=== PATIENT | male | born 1970 | race Caucasian/White ===

== ENCOUNTER 2018-02-18 11:51 | Inpatient (IN) | payer OTHER, BC ==
[~2018-02-18] VITALS: Ht 185.4 cm; Wt 134.9 kg
[~2018-02-18 11:51] MED LIST: ACET-749 PO; ALLO300T2 PO; ARMO150T4 PO; ATV1 PO; CHOL1TAB42 PO; CLC6 PO; CYAN10005 PO; CYCL10TA6 PO; DIME1CAP2 PO; GABA-1220 PO; METH1TAB81 PO; ORPH100T PO; RXC5 PO
[2018-02-18] MEDS ORDERED: KETOROLAC TROMETHAMINE 60 MG/2 ML VIAL IM STA (12:11)
--- NOTE | 2018-02-18 12:13 | EMERGENCY ROOM VISIT NOTE ---
History Report prepared by Francisco J: Eliezer Pool Under the Supervision of: Dr. Christopher Kaur M.D. First contact with patient: 12:07 Chief Complaint: BACK PAIN Stated Complaint: BACK PAIN History of Present Illness The patient is a 47 year old male who presents to the Emergency Room with complaints of worsening back pain over the past week. Per the nursing note, the patient has been having pain on and off for the past month, but has worsened over the past week. Per the patient's , the patient had back surgery a year and a half ago to S1. He notes that he had 2 pins and 2 rods inserted. He states that his back is "killing him", and he has pain and numbness and tingling down the side of his right leg and into his foot. The patient notes that he has been taking Ibuprofen for the pain. He says that he tried to get in to see his PCP for this, but they have been full. He denies any urinary symptoms. Source of History: patient, spouse/significant other, nursing staff Onset: Over past week Position: back Symptom Intensity: "killing" him Quality: other (pain) Timing: worsening Associated Symptoms: + numbness (and tingling down right leg and foot), No urinary symptoms Review of Systems See HPI for pertinent positives and negatives. A total of ten systems were reviewed and were otherwise negative. Past Medical & Surgical Medical Problems: (1) Kidney stones (2) Lumbar stenosis with neurogenic claudication (3) Sciatica associated with disorder of lumbar spine (4) Spondylolisthesis at L5-S1 level Surgical Problems: (1) History of appendectomy (2) History of tonsillectomy Family History Heart disease Hypertension Social History Smoking Status: Never Smoker Alcohol Use: none Drug Use: none Marital Status: Housing Status: lives with family Occupation Status: employed Current/Historical Medications Scheduled Allopurinol (Zyloprim), 300 MG PO QAM Amlodipine (Norvasc), 10 MG PO QAM Cholecalciferol (Vitamin D), 5,000 INTER.UNIT PO QAM Cyanocobalamin (Vitamin B-12), 1,000 MCG PO QAM Dimethyl Fumarate (Tecfidera), 240 MG PO BID Fish Oil ([place]-3), 2,000 MG PO QAM Gabapentin (Neurontin), 400 MG PO DAILY Metoprolol Succ (Toprol Xl) (Toprol-Xl), 50 MG PO QAM Scheduled PRN Hydroxyzine HCl (Hydroxyzine HCl), 25 MG PO Q8 PRN for Itching Allergies Coded Allergies: Glatiramer (Unverified Allergy, Unknown, [place], 06/05/16) Mannitol (Unverified Allergy, Unknown, [place], 06/05/16) Meperidine (Verified Allergy, Unknown, hypotension, 06/05/16) Physical Exam Vital Signs Date Time Temp Pulse Resp B/P (MAP) Pulse Ox O2 Delivery O2 Flow Rate FiO2 02/18/18 16:40 70 20 178/88 95 Room Air 02/18/18 15:17 68 18 172/108 95 Room Air 02/18/18 13:55 81 18 136/95 96 Room Air 02/18/18 12:53 88 18 169/116 100 Room Air 02/18/18 11:52 36.5 93 20 163/116 97 Room Air Physical Exam Physical Exam GENERAL: He is oriented to person, place, and time. He appears well-developed and well-nourished. He does not appear distressed. ____ HENT: Exam performed. Head: Normocephalic and atraumatic. Right Ear: External ear normal. No mastoid tenderness. Left Ear: External ear normal. No mastoid tenderness. Mouth/Throat: The oropharynx is clear and moist. No trismus in the jaw. No dental abscesses or uvula swelling. No oropharyngeal exudate or tonsillar abscesses. ____ EYES: Conjunctivae and EOM are normal. Pupils are equal, round, and reactive to light. Right eye exhibits no discharge. Left eye exhibits no discharge. No scleral icterus. ____ NECK: Normal range of motion. Neck supple. No JVD present. No spinous process tenderness present. No carotid bruit present. No rigidity. No tracheal deviation and normal range of motion present. No Brudzinski's sign and no Kernig 's sign noted. ____ CV: Normal rate, regular rhythm, normal heart sounds and intact distal pulses. There is no peripheral edema. Palpable radial pulses bue. ____ PULM/CHEST: Effort normal and breath sounds normal. No respiratory distress. No stridor. He has no wheezes. He has no rales. Chest Wall: He exhibits no tenderness. ____ ABD: The abdomen is soft. Bowel sounds are normal. He has no distension. No mass is present. There is no tenderness. There is no rebound, no guarding, no Momin's sign and no tenderness at McBurney's point. Rovsig negative MUSC/SKEL: Pain on palpation over the lumbar and sacral area. LYMPH: No cervical adenopathy. ____ NEURO: He is alert and oriented to person, place, and time. He has normal strength. No saddle anesthesia or paresthesias. No cranial nerve deficit or sensory deficit. Coordination and gait normal. GCS eye subscore is 4. GCS verbal subscore is 5. GCS motor subscore is 6. Cerebellar tests wnl. ____ SKIN: Skin is warm and dry. He is not diaphoretic. ____ PSYCH: He has a normal mood and affect. He behavior is normal. Judgment and thought content normal. ____ Medical Decision & Procedures ER Provider Diagnostic Interpretation: X-ray: Per my interpretation, radiologist review. L-SPINE MIN 4 VIEWS ROUTINE CLINICAL HISTORY: Back pain. History of spine surgery. COMPARISON: Lumbar spine radiographs March 26, 2016 and lumbar spine MRI April 30, 2016. FINDINGS: The patient is status post L5-S1 discectomy with posterior decompression and bilateral pedicle screw fusion from L5 through S1. Of note, the proximal aspect of the bilateral S1 pedicle screws are fractured. No acute lumbar spine fracture or subluxation is present. There is mild multilevel facet arthrosis. Mild multilevel endplate osteophytosis is noted. IMPRESSION: 1. Fracture of the bilateral S1 pedicle screws 2. No acute lumbar spine fracture or subluxation. Electronically signed by: Naseem Mcclain M.D. 02/18/2018 1:01 PM Dictated Date/Time: 02/18/2018 12:57 PM SACRUM COCCYX MIN 2 VIEWS CLINICAL HISTORY: back pain COMPARISON STUDY: Lumbar spine radiograph March 26, 2016. FINDINGS: The patient is status post L5-S1 discectomy with L5-S1 bilateral pedicle screw fusion. The proximal aspects of both S1 screws or fracture. Sacroiliac joints are intact. There is no acute fracture within the sacrum or coccyx by radiography. IMPRESSION: 1. No acute fracture within the sacrum or coccyx by radiography. 2. Status post L5-S1 discectomy and bilateral pedicle screw fusion. Fracture of the bilateral S1 pedicle screws. Electronically signed by: Naseem Mcclain M.D. 02/18/2018 1:03 PM Dictated Date/Time: 02/18/2018 1:01 PM Medications Administered Medications (Trade) Dose Ordered Sig/Maite Route Start Time Stop Time Status Last Admin Dose Admin Ketorolac Tromethamine (Toradol Inj) 15 mg NOW STAT IM 02/18/18 12:11 02/18/18 12:13 DC 02/18/18 12:21 15 MG Diazepam (Valium Tab) 5 mg NOW STAT PO 02/18/18 13:13 02/18/18 13:15 DC 02/18/18 13:26 5 MG Hydromorphone HCl (Dilaudid Inj) 1 mg STK-MED ONCE .ROUTE 02/18/18 13:23 02/18/18 13:24 DC 02/18/18 13:26 1 MG Hydromorphone HCl (Dilaudid Inj) 0.5 mg NOW STAT IM 02/18/18 15:02 02/18/18 15:03 DC 02/18/18 15:15 0.5 MG Acetaminophen (Tylenol Tab) 650 mg Q6H PRN PO 02/18/18 16:15 03/20/18 16:14 02/18/18 16:35 650 MG Lorazepam 1 mg/ Syringe 1 ml @ 1 mls/min Q6H PRN IV 02/18/18 16:15 03/20/18 16:14 02/18/18 16:36 1 MLS/MIN Cyclobenzaprine HCl (Flexeril Tab) 10 mg Q8H PRN PO 02/18/18 16:15 03/20/18 16:14 02/18/18 16:35 10 MG ED Course 1208: The patient was evaluated in room B4B. A complete history and physical exam was performed. 1211: Toradol Inj 15 mg IM. 1313: Valium Tab 5 mg PO, Dilaudid Inj 1 mg IM. 1427: Multiple attempts have been made to page Dr. Valdes. No response at this time. 1502: Dilaudid Inj 0.5 mg IM. 1528: I discussed the patient with Dr. Valdes - [facility] [place] he will come down to evaluate the patient. 1539: Dr. Valdes is in the room evaluating the patient. 1609: Dr. Valdes states he will admit the patient to his service. Medical Decision 1208: The patient was evaluated in room B4B. A complete history and physical exam was performed. 1211: Toradol Inj 15 mg IM. 1313: Valium Tab 5 mg PO, Dilaudid Inj 1 mg IM. 1427: Multiple attempts have been made to page Dr. Valdes. No response at this time. 1502: Dilaudid Inj 0.5 mg IM. 1528: I discussed the patient with Dr. Keisha DONALD - he will come down to evaluate the patient. 1539: Dr. Valdes is in the room evaluating the patient. 1609: Dr. Valdes states he will admit the patient to his service. Medication Reconcilliation Current Medication List: was personally reviewed by me Blood Pressure Screening Patient's blood pressure: Elevated blood pressure Blood pressure disposition: Elevated BP felt to be situational Consults Time Called: 1525 Consulting Physician: Dr. Keisha DONALD Returned Call: 1528 I discussed the patient with Dr. Keisha DONALD - he will come down to evaluate the patient. Additional Consults: Time Called: 1600 Consulted Physician: Dr. Keisha DONALD Returned Call: 1609 Additional Comments: I discussed the patient with Dr. Keisha DONALD - marilyn will evaluate the patient for further treatment. Impression Primary Impression: Intractable back pain Scribe Attestation The scribe's documentation has been prepared under my direction and personally reviewed by me in its entirety. I confirm that the note above accurately reflects all work, treatment, procedures, and medical decision making performed by me. The chart was completed utilizing [employer] voice recognition software. Grammatical errors, random word insertions, pronoun errors, and incomplete sentences are an occasional consequence of this system due to software limitations, ambient noise, and hardware issues. Any formal questions or concerns about the content, text, or information contained within the body of this dictation should be directly addressed to the physician for clarification. Departure Information Dispostion Being Evaluated By Enoc Hyde M.D. (PCP) Patient Instructions [facility]
--- NOTE | 2018-02-18 13:03 | DIAGNOSTIC IMAGING REPORT ---
L-SPINE MIN 4 VIEWS ROUTINE CLINICAL HISTORY: Back pain. History of spine surgery. COMPARISON: Lumbar spine radiographs March 26, 2016 and lumbar spine MRI April 30, 2016. FINDINGS: The patient is status post L5-S1 discectomy with posterior decompression and bilateral pedicle screw fusion from L5 through S1. Of note, the proximal aspect of the bilateral S1 pedicle screws are fractured. No acute lumbar spine fracture or subluxation is present. There is mild multilevel facet arthrosis. Mild multilevel endplate osteophytosis is noted. IMPRESSION: 1. Fracture of the bilateral S1 pedicle screws 2. No acute lumbar spine fracture or subluxation. Electronically signed by: Naseem Mcclain M.D. 02/18/2018 1:01 PM Dictated Date/Time: 02/18/2018 12:57 PM
--- NOTE | 2018-02-18 13:04 | DIAGNOSTIC IMAGING REPORT ---
SACRUM COCCYX MIN 2 VIEWS CLINICAL HISTORY: back pain COMPARISON STUDY: Lumbar spine radiograph March 26, 2016. FINDINGS: The patient is status post L5-S1 discectomy with L5-S1 bilateral pedicle screw fusion. The proximal aspects of both S1 screws or fracture. Sacroiliac joints are intact. There is no acute fracture within the sacrum or coccyx by radiography. IMPRESSION: 1. No acute fracture within the sacrum or coccyx by radiography. 2. Status post L5-S1 discectomy and bilateral pedicle screw fusion. Fracture of the bilateral S1 pedicle screws. Electronically signed by: Naseem Mcclain M.D. 02/18/2018 1:03 PM Dictated Date/Time: 02/18/2018 1:01 PM
[2018-02-18] MEDS ORDERED: DIAZEPAM 5MG TAB PO STA (13:13)
[2018-02-18] MEDS ORDERED: HYDROmorphone INJ 0.5 MG/0.5 ML SYR IM STA ×2 (13:13→15:02)
[2018-02-18] MEDS ORDERED: HYDROmorphone INJ 1 MG/ML SYR ONE (13:23)
[2018-02-18] MEDS: SODIUM CHLORIDE 0.9% 1000ML 1,000 ML IV SCH (16:11)
[2018-02-18] MEDS ORDERED: LORAZEPAM INJ 1 MG in SYRINGE 0.5 ML IV PRN (16:15)
[2018-02-18] MEDS ORDERED: ONDANSETRON INJ 2 MG/ML 2 ML VIAL IV PRN (16:15)
[2018-02-18] MEDS ORDERED: ACETAMINOPHEN 325 MG TAB PO PRN (16:15)
[2018-02-18] MEDS ORDERED: NALOXONE HCL 0.4 MG/1 ML VIAL/CARP IV PRN (16:15)
[2018-02-18] MEDS ORDERED: LORAZEPAM 1 MG TAB PO PRN (16:15)
--- NOTE | 2018-02-18 16:18 | History and Physical ---
History & Physical Date Feb 18, 2018. Chief Complaint Back and right leg pain History of Present Illness The patient is a 47 year old male with complaints of severe back and right leg pain. Patient states his symptoms became quite severe over the past week. He describes the pain at the lumbosacral junction extending in the right buttock posterior thigh extending to the anterior right tibia. He gets a little bit of pain in the left buttock but not as severe. He denies any specific trauma fall or event. He states he has been unable to care for himself and ambulate reasonably secondary to the pain. He denies any loss of bowel or bladder control. He does take oral pain medications at home without been unsuccessful in controlling his symptoms. Again he is status post lumbar decompression fusion L5-S1 almost 2 years ago. Past Medical/Surgical History Medical Problems: (1) Kidney stones (2) Lumbar stenosis with neurogenic claudication (3) Sciatica associated with disorder of lumbar spine (4) Spondylolisthesis at L5-S1 level Surgical Problems: (1) History of appendectomy (2) History of tonsillectomy Additional History Hypertension: Yes Allergies Coded Allergies: Glatiramer (Unverified Allergy, Unknown, [place], 06/05/16) Mannitol (Unverified Allergy, Unknown, [place], 06/05/16) Meperidine (Verified Allergy, Unknown, hypotension, 06/05/16) Home Medications Scheduled Allopurinol (Zyloprim), 300 MG PO QAM Cholecalciferol (Vitamin D), 5,000 UNITS PO QAM Cyanocobalamin (Vitamin B-12), 1,000 MCG PO QAM Dimethyl Fumarate (Tecfidera), 240 MG PO BID Gabapentin (Neurontin), 400 MG PO DAILY Metoprolol Succ (Toprol Xl) (Toprol-Xl), 50 MG PO DAILY Scheduled PRN Acetaminophen/Codeine (Tylenol W/Codeine #3), 1 TAB PO BID PRN for Pain Armodafinil (Nuvigil), 1 TAB PO DAILY PRN for unknown Colchicine (Colcrys), 0.6 MG PO DIRECTED PRN for inflammation Cyclobenzaprine Hcl (Flexeril), 10 MG PO BID PRN for SPASM Lorazepam (Lorazepam), 1 MG PO Q6H PRN for ANXIETY/SPASMS Orphenadrine Citrate (Norflex), 1 TAB PO BID PRN for unknown Oxycodone HCl (Oxycodone HCl), 5-10 MG PO Q4H PRN for Pain Miscellaneous Medications Methylprednisolone (Medrol), 4 MG PO Physical Examination Addiitonal Comments: On exam patient exhibits marked discomfort. He has 4/5 right quadriceps compared to a 5/5 on the left. Plantar flexion dorsiflexion appears to be symmetric bilaterally. Sensory is symmetric and intact. He has tension signs with straight leg raising on the right compared to the left. He has no abnormal skin markings inspection of the lumbar spine. No significant pain to palpation of the lumbar musculature. Diagnosis Low back pain with right sciatica. Plan at this time in light of his presentation and severe discomfort I would like to obtain an MRI of the lumbar spine. I am concerned that he is demonstrating evidence of significant retrolisthesis of L4 on L5 on his plain films performed today. We will get the MRI and make further recommendations after its review. Plan of Treatment Obtain MRI and make further recommendations.
[2018-02-18] MEDS ORDERED: LORAZEPAM 2 MG/ML 1 ML VIAL ONE (16:32)
[2018-02-18] MEDS: CYCLOBENZAPRINE HCL 10 MG TAB PO PRN (16:35)
[2018-02-18] MEDS ORDERED: ATR25 PO (16:48)
[2018-02-18] MEDS ORDERED: AMLO-114 PO (16:48)
[2018-02-18] MEDS ORDERED: OMEG10007 PO (16:48)
[2018-02-18] MEDS ORDERED: METO50TA8 PO (17:43)
[2018-02-18] MEDS ORDERED: IV FLUIDS COMPLETED PRN (17:45)
[2018-02-18 18:15] VITALS: BP 147/100; PULSE 90; TEMP 36.7; O2SAT 93; Ht 185.4 cm; Wt 134.9 kg
--- NOTE | 2018-02-18 18:15 | DIAGNOSTIC IMAGING REPORT ---
LUMBAR SPINE COMBINATION CLINICAL HISTORY: 47 years-old Male presenting with back and right leg pain, recent fall, diagnosed with multiple sclerosis in 2014, history of L5-S1 surgery in 2016. TECHNIQUE: Multisequence, multiplanar MR imaging of the lumbar spine was performed before and after the administration of intravenous contrast. IV contrast: 12.4 mL of Gadavist. COMPARISON: None. FINDINGS: Localizer images: Unremarkable. Normal lumbar lordosis. Postsurgical changes of transpedicular screw and humberto fixation of L5-S1 with L5 left laminectomy defect. Adequate posterior decompression. Interbody spacer noted at L5-S1. Endplates at L5-S1 demonstrate fatty changes (Modic type II). The nonoperative levels demonstrate normal vertebral body height, alignment, and bone marrow signal intensity. Mild disc desiccation without height loss at L2-3 and L3-4. Multilevel degenerative changes further detailed below: L1-2: No significant neural foraminal or spinal canal stenosis. L2-3: Minimal eccentric disc bulge results in mild bilateral neural foraminal narrowing, greater on the left. No significant spinal canal narrowing. L3-4: Minimal eccentric disc bulge results in mild bilateral neural foraminal narrowing, greater on the left. L4-5: Mild disc bulge with facet arthropathy and mild ligamentum flavum thickening does not result in significant spinal canal narrowing. Moderate right and severe left neural foraminal narrowing. Abutment of the exiting right and mass effect on the exiting left L4 nerve roots. No mass effect on the transiting L5 nerve roots. L5-S1: No significant neural foraminal or spinal canal narrowing. Spinal cord is in good position at the superior endplate of L1. Cauda equina normal in morphology. No fluid collection in the operative bed. Expected enhancement of the surgical granulation tissue. No abnormal enhancement of the spinal cord or cauda equina. Mild nonspecific subcutaneous edema in the lumbar region. Mild nonspecific edema in the superficial sacral musculature. IMPRESSION: 1. Postsurgical changes of L5-S1 posterior fusion with interbody spacer and L5 laminectomy. 2. Mild multilevel degenerative changes most significant at the adjacent level of L4-5, where there is moderate right and severe left neural foraminal narrowing impacting the bilateral exiting L4 nerve roots, left greater than right. Electronically signed by: Daniel Andrade M.D. 02/18/2018 6:14 PM Dictated Date/Time: 02/18/2018 6:07 PM
[2018-02-18] MEDS: HYDROmorphone HCL 0.5MG/ML 50 ML CASSETTE IV PRN ×2 (18:51→23:32)
[2018-02-18 19:20] VITALS: BP 142/129; PULSE 99; TEMP 36.7; O2SAT 93
[2018-02-18] MEDS: LACTATED RINGER'S 1000ML 1,000 ML IV SCH (19:26)
[2018-02-18 20:06] VITALS: BP 129/84; PULSE 99; O2SAT 93
[2018-02-18 20:57] VITALS: BP 144/98; PULSE 84; TEMP 36.7; O2SAT 90
[2018-02-18] MEDS: DOCUSATE SODIUM 100 MG CAP PO SCH (21:00)
[2018-02-18 22:02] VITALS: BP 159/98; PULSE 85; O2SAT 93
[2018-02-18 23:06] VITALS: BP 130/80; PULSE 90; TEMP 36.6; O2SAT 92
[2018-02-19 03:17] VITALS: BP 137/93; PULSE 79; TEMP 36.7; O2SAT 94
[2018-02-19] MEDS: HYDROmorphone HCL 0.5MG/ML 50 ML CASSETTE IV PRN ×2 (06:57→14:51)
[2018-02-19] MEDS: LACTATED RINGER'S 1000ML 1,000 ML IV SCH ×2 (07:41→20:43)
[2018-02-19 07:42] VITALS: BP 142/93; PULSE 74; TEMP 36.6; O2SAT 95
[2018-02-19] MEDS: METOPROLOL SUCC 50MG EXT REL TAB PO SCH (08:33)
[2018-02-19] MEDS: GABAPENTIN 400 MG CAP PO SCH (08:33)
[2018-02-19] MEDS: ALLOPURINOL 300 MG TAB PO SCH (08:33)
[2018-02-19] MEDS: DOCUSATE SODIUM 100 MG CAP PO SCH ×2 (08:33→20:41)
--- NOTE | 2018-02-19 10:45 | Progress Note ---
Progress Note Date of Service Feb 19, 2018. Progress Note Patient continues to complain of significant back bilateral leg pain right greater than left. Clearly exacerbated with activity. The IV Dilaudid is providing some relief. Vital signs are stable. Physical exam essentially unchanged. I long discussion with this patient reviewing his MRI findings. The MRI demonstrates evidence of marked facet hypertrophy consistent with instability. There is significant increased fluid within the facet joints indicating instability. This is creating significant lateral recess disease and foraminal stenosis. Undoubtedly this is contributing to his pain patterns. We lengthy discussion regarding treatment options. In light of his symptoms being severe and marked decline in status over the past several weeks with a long-standing history of worsening back pain over the past several months he would like to pursue surgical intervention. Surgery would require lumbar decompression and fusion L4-5 with removal of instrumentation L5-S1. Risks benefits pros cons and alternatives were outlined in detail. Risks include but not limited to from anesthesia blindness stroke paralysis nerve damage blood loss current transfusion infection requiring reoperation. Patient understands and agrees. Like to pursue surgery. We will try to have this arranged performed on Wednesday.
[2018-02-19] MEDS: SODIUM CHLORIDE 0.9% 1000ML 1,000 ML IV SCH (15:12)
[2018-02-19 15:15] VITALS: O2SAT 94
[2018-02-19 15:22] VITALS: BP 153/96; PULSE 84; TEMP 36.9; O2SAT 94
[2018-02-19] MEDS ORDERED: NURSING VERBAL MED ORDER ONE (15:30)
[2018-02-19] MEDS ORDERED: DiphenhydrAMINE HCL 50 MG/ML VIAL IV SCH (15:30)
[2018-02-19] MEDS: DIMETHYL FUMARATE 240 MG PO SCH (20:42)
[2018-02-19 23:55] VITALS: BP 149/96; PULSE 87; TEMP 36.6; O2SAT 93
[2018-02-20] VITALS (7 sets, daily range): BP systolic 130–154; BP diastolic 90–112; PULSE 73–84; TEMP 36.6–36.9; O2SAT 91–94
[2018-02-20] MEDS: HYDROmorphone HCL 0.5MG/ML 50 ML CASSETTE IV PRN ×4 (06:53→23:06)
--- NOTE | 2018-02-20 08:37 | Progress Note ---
Progress Note Date of Service Feb 20, 2018. Progress Note Subjective: The patient is well-known to our practice who previously undergone lumbar decompression and fusion at L5-S1. Reported the emergency room on Wednesday with recurring symptoms. He has a combination of both pain in his back and his legs. Repeat MRI revealed adjacent level disease and we are planning to bring him back to surgery on Wednesday. Objective: The patient is comfortable with his Dilaudid REPAIR TECH. He is alert and oriented. His abdomen soft nontender his calves are supple nontender strength and sensation are grossly intact. Assessment: Patient presents with adjacent level disease and spinal stenosis. Plan: We will make him n.p.o. after midnight. We will continue his Dilaudid REPAIR TECH for pain control. I will bring him to the operating room tomorrow for removal of hardware at L5-S1 decompression fusion L4-5.
[2018-02-20] MEDS: DIMETHYL FUMARATE 240 MG PO SCH ×2 (09:29→20:49)
[2018-02-20] MEDS: GABAPENTIN 400 MG CAP PO SCH (09:29)
[2018-02-20] MEDS: ALLOPURINOL 300 MG TAB PO SCH (09:29)
[2018-02-20] MEDS: DOCUSATE SODIUM 100 MG CAP PO SCH ×2 (09:29→20:49)
[2018-02-20] MEDS: LACTATED RINGER'S 1000ML 1,000 ML IV SCH (09:30)
[2018-02-20] MEDS: METOPROLOL SUCC 50MG EXT REL TAB PO SCH (09:30)
[2018-02-20] MEDS: SODIUM CHLORIDE 0.9% 1000ML 1,000 ML IV SCH (16:11)
[2018-02-20] MEDS ORDERED: NURSING VERBAL MED ORDER ONE (20:15)
[2018-02-21] VITALS (9 sets, daily range): BP systolic 123–156; BP diastolic 81–106; PULSE 80–99; TEMP 36.5–37; O2SAT 91–96
[2018-02-21] MEDS: LACTATED RINGER'S 1000ML 1,000 ML IV SCH
[2018-02-21] MEDS: HYDROmorphone HCL 0.5MG/ML 50 ML CASSETTE IV PRN ×4 (07:02→23:00)
[2018-02-21] MEDS: GABAPENTIN 400 MG CAP PO SCH (08:33)
[2018-02-21] MEDS: DIMETHYL FUMARATE 240 MG PO SCH ×2 (08:33→20:58)
[2018-02-21] MEDS: ALLOPURINOL 300 MG TAB PO SCH (08:34)
[2018-02-21] MEDS: DOCUSATE SODIUM 100 MG CAP PO SCH ×2 (08:34→20:57)
[2018-02-21] MEDS: METOPROLOL SUCC 50MG EXT REL TAB PO SCH (08:34)
--- NOTE | 2018-02-21 14:09 | History & Physical Bridge Note ---
H&P Re-Evaluation Bridge Note: I have examined the patient, reviewed the History & Physical and in the interval since the performance of the History & Physical I have noted the following changes of clinical significance: No changes noted
[2018-02-21] MEDS ORDERED: NURSING VERBAL MED ORDER ONE (14:15)
[2018-02-21] MEDS ORDERED: CEFAZOLIN SOD 3000MG/22.5 ML IV PUSH IV ONE (14:22)
[2018-02-21] MEDS ORDERED: LIDOCAINE HCL 2% 2 ML VIAL (20MG/ML) ONE ×2 (14:31→15:18)
[2018-02-21] MEDS ORDERED: NEOSTIGMINE METHYLSULFATE 1 MG/ML 10ML VIAL ONE (14:31)
[2018-02-21] MEDS ORDERED: BUPIVACAINE/EPINEPHRINE 0.5% MPF 1:200,000 30 ML VIAL ONE (14:31)
[2018-02-21] MEDS ORDERED: GLYCOPYRROLATE INJ 0.2 MG/ML VIAL ONE ×2 (14:31→15:18)
[2018-02-21] MEDS ORDERED: BACITRACIN 50000 UNIT VIAL ONE (14:31)
[2018-02-21] MEDS ORDERED: MIDAZOLAM HCL 1 MG/ML 2ML VIAL ONE (14:31)
[2018-02-21] MEDS ORDERED: DEXAMETHASONE SOD INJ 4 MG/ML VIAL ONE (14:31)
[2018-02-21] MEDS ORDERED: FENTANYL CITRATE INJ 50 MCG/1 ML 2 ML VIAL ONE (14:31)
[2018-02-21] MEDS ORDERED: ONDANSETRON INJ 2 MG/ML 2 ML VIAL ONE ×2 (14:31→15:18)
[2018-02-21] MEDS ORDERED: PROPOFOL IV EMULSION 10 MG/ML 20 ML VIAL IV ONE (14:31)
[2018-02-21] MEDS ORDERED: HYDROmorphone INJ 2 MG/ML SYR/VIAL ONE (14:34)
[2018-02-21] MEDS ORDERED: EpHEDrine SULFATE INJ 50 MG/ML AMP ONE (15:15)
[2018-02-21] MEDS ORDERED: SODIUM CHLORIDE 0.9% INJ 10 ML VIAL ONE (15:15)
[2018-02-21] MEDS ORDERED: PHENYLEPHRINE 100MCG/ML 5ML SYR ONE (15:15)
[2018-02-21] MEDS ORDERED: LARYING-O-JET KIT (LTA) ONE (15:15)
[2018-02-21] MEDS ORDERED: PHENYLEPHRINE HCL INJ 10 MG/ML VIAL ONE (16:05)
[2018-02-21] MEDS ORDERED: ROCURONIUM BROMIDE 10 MG/ML 5 ML VIAL IV ONE (16:26)
[2018-02-21] MEDS ORDERED: FLOSEAL HEMOSTATIC MATRIX 10ML TOP ONE (16:32)
--- NOTE | 2018-02-21 16:35 | [facility] Operative Report ---
Operative Report Operative Date Feb 21, 2018. Pre-Operative Diagnosis Adjacent level disease and spinal stenosis Post-Operative Diagnosis Adjacent level disease and spinal stenosis Procedure(s) Performed 1. Removal of posterior interpretation L5-S1. #2 expiration of fusion L5-S1. #3 lumbar decompression medial facetectomies foraminotomies L4-5. #4 posterior spinal fusion L4-5. #5 posterior spinal fusion L4-5. #6 interbody fusion L4-5. #7 placement of peek cage 14 x 26 mm 2 8 placement of locally harvested morselized autograft and posterior gutters. #9 placement InFUSE collagen sponge, mass graft the posterior gutters ostial amp in the interbody space. Surgeon Dr. Eran Valdes Lead Teller Surgeon(s) Yola Mcgovern PA-C Estimated Blood Loss 200ml Findings Severe spinal stenosis Specimens A: Explanted hardware lumbar spine L5-S1 Anesthesia Type General Description of Procedure Patient was met with preoperatively case discussed all questions addressed. After informed consent obtained patient was taken to the operative suite underwent intubation and placed in a prone position on the Addy table on top of the Morris frame. All bony prominences well-padded eyes inspected to ensure no external pressure placed upon the. This point the lumbar spine was prepped and draped in the normal sterile fashion. Sharp dissection with the assistance of Bovie cautery was performed down to and exposing the lamina and transverse processes of L4 and instrumentation at the 5 S1 levels bilaterally. Then proceeded remove the hardware bilaterally. He did note fracture of the S1 pedicle screws bilaterally. Remaining hardware was removed without difficulty. The fusion mass explored and noted to be intact. Then performed a complete laminectomy of L4 addressing severe lateral recess disease and facet hypertrophy. Cortical screws are then placed in L4 and L5 bilaterally with the assistance of fluoroscopy and appropriately sized humberto placed. Through a transforaminal approach on the left complete discectomy was performed endplates created to subcortical bleeding bone and 14 x 26 mm peek cage filled with ostium bone graft tapped in position. Then proceeded to the right side through a transforaminal approach another cage 14 x 26 mm was inserted filled with ostial amp bone graft. After this complete the rods were compressed locked in final position bilaterally. The transverse processes of L4 and L5 burred to subcortical bleeding bone. Infuse collagen sponge mesh graft and locally harvested Bell's allograft was placed posterior gutters. 15 round BETHANY drain inserted. Incision was then closed with 1 Vicryl fascia 2-0 Vicryl subcutaneous and 4-0 Monocryl for fashion closure Steri-Strips sterile dressings placed. Patient will continue PACU stable condition. Please note Yola Aguila was present throughout the entire procedure involved in patient positioning complex portions of the surgery and fashion closure. I attest to the content of the Intraoperative Record and any orders documented therein. Any exceptions are noted below.
[2018-02-21] MEDS ORDERED: SODIUM CHLORIDE 0.9% 1000ML 1,000 ML IV SCH (16:41)
[2018-02-21] MEDS ORDERED: METOCLOPRAMIDE HCL INJ 5 MG/ML 2 ML VIAL IV PRN (16:45)
[2018-02-21] MEDS ORDERED: ACETAMINOPHEN IV 100 ML IV PRN (16:45)
[2018-02-21] MEDS ORDERED: DO NOT ADMINISTER PNEUMOCOCCAL VACCINE PRN (16:45)
[2018-02-21] MEDS ORDERED: LORAZEPAM INJ 0.5 MG in SYRINGE 0.75 ML IV PRN (16:45)
[2018-02-21] MEDS ORDERED: BISACODYL 10 MG SUPP PR PRN (16:45)
[2018-02-21] MEDS ORDERED: LORAZEPAM 0.5 MG TAB PO PRN (16:45)
[2018-02-21] MEDS ORDERED: ACETAMINOPHEN 500 MG TAB PO PRN (16:45)
[2018-02-21] MEDS ORDERED: NALOXONE HCL 0.4 MG/1 ML VIAL/CARP IV PRN ×2 (16:45)
[2018-02-21] MEDS ORDERED: DO NOT ADMINISTER FLU VACCINE PRN (16:45)
[2018-02-21] MEDS ORDERED: MAGNESIUM HYDROXIDE SUSP 30 ML UDC PO PRN (16:45)
[2018-02-21] MEDS ORDERED: ALUMINUM/MAGNESIUM SUSP 30 ML UDC PO PRN (16:45)
[2018-02-21] MEDS ORDERED: FAMOTIDINE 20 MG TAB PO PRN (16:45)
[2018-02-21] MEDS ORDERED: ONDANSETRON INJ 2 MG/ML 2 ML VIAL IV PRN (16:45)
[2018-02-21] MEDS ORDERED: hydrOXYzine HCL 25 MG TAB PO PRN (16:45)
[2018-02-21] MEDS ORDERED: SOD PHOSPHATE/SOD BIPHOSPHATE ENEMA 132 ML BTL PR PRN (16:45)
[2018-02-21] MEDS ORDERED: PROMETHAZINE HCL INJ 12.5 MG in SODIUM CHLORIDE 0.9% 50ML 50 ML IV PRN (16:45)
--- NOTE | 2018-02-21 17:32 | DIAGNOSTIC IMAGING REPORT ---
LUMBAR SPINE 2 OR 3 VIEW CLINICAL HISTORY: 47 years-old Male presenting with REMOVE HARDWARE L5-S1/L4-5 DECOMPRESSION/FUSION. TECHNIQUE: 3 fluoroscopic image(s) recorded as part of an intraoperative procedure. COMPARISON: 06/08/2016. FINDINGS/IMPRESSION: Posterior transpedicular screw and humberto fixation of L4-5, which represents a revision of prior L5-S1 fusion. Interbody spacer at L5-S1 again noted with a new interbody spacer at L4-5. Grossly normal anatomic alignment. Laminectomy defects at L4 and L5 evident. Please see surgical report for further details. Fluoroscopy dosage (mGy): Not available. Fluoroscopy time: 8 seconds. Number of fluoroscopic spot images: 0. Electronically signed by: Daniel Andrade M.D. 02/21/2018 5:30 PM Dictated Date/Time: 02/21/2018 5:29 PM
[2018-02-21] MEDS: DOCUSATE SODIUM/SENNA 50/8.6MG TAB PO SCH (20:56)
[2018-02-21] MEDS: CYCLOBENZAPRINE HCL 10 MG TAB PO PRN (20:57)
[2018-02-21] MEDS: CEFAZOLIN IV 2,000 MG in SYRINGE 0 ML IV SCH (21:47)
[2018-02-21] MEDS: SODIUM CHLORIDE 0.9% 1000ML 1,000 ML IV SCH (22:03)
[2018-02-22 03:31] VITALS: BP 129/96; PULSE 98; TEMP 36.7; O2SAT 96
[2018-02-22] MEDS: SODIUM CHLORIDE 0.9% 1000ML 1,000 ML IV SCH (04:29)
[2018-02-22] MEDS: CEFAZOLIN IV 2,000 MG in SYRINGE 0 ML IV SCH (05:55)
[2018-02-22] MEDS ORDERED: DC PCA SCH (06:00)
[2018-02-22 06:06] VITALS: O2SAT 93
[2018-02-22] MEDS ORDERED: NURSING DECISION MEDICATION ORDER SCH (06:45)
[2018-02-22] MEDS ORDERED: RXC5 PO (07:38)
--- NOTE | 2018-02-22 07:39 | Discharge Instructions ---
Discharge Instructions Date of Service Feb 22, 2018. Admission Reason for Admission: Low Back Pain Discharge Discharge Diagnosis / Problem: lumbar stenosis Discharge Goals Goal(s): Improve function Activity Recommendations Activity Limitations: per Instructions/Follow-up section . Instructions / Follow-Up Instructions / Follow-Up ACTIVITY RECOMMENDATIONS: SELF CARE INSTRUCTIONS AFTER THORACIC/LUMBAR FUSIONS 1. You may walk to your tolerance. It is good exercise for your legs and back. Expect some back and intermittent leg aches and pains. 2. You may perform "counter-top" level activities (make a sandwich, noel with a project, etc.). 3. No bending or lifting of more than 10 pounds or back twisting of any nature (roll like a log when turning in bed). 4. You may ride in a car for 20-30 minutes at a time. No driving until after your first visit with your doctor. 5. Frequent changes of position and restricting sitting to 30 minutes at a time will help limit the amount of back spasms and stiffness you may experience. 6. You may discontinue the use of ambulatory aids (cane, crutches, etc.) once your strength and confidence allow. 7. You may photoengraving sketch maker the shower and let water strike your incision when you arrive home at least once daily. Do not take a tub bath, sit in a hot tub or go into a swimming pool until after your first recheck in the office. SPECIAL CARE INSTRUCTIONS: VERY IMPORTANT TO READ AND REVIEW A. Your surgical incision has been closed with a cosmetic suture under the skin that will dissolve in about 6 weeks. In 14 days, you can use a pair of clean scissors and cut the suture that is left outside of the skin at the ends of your incision. 1. The small skin tapes can be removed 7 days after surgery if they have not fallen off by that point. 2. You may keep the wound open to air as much as possible to promote healing after post-op day number 5 unless told otherwise by your doctor. 3. If you think the wound looks like it is becoming infected (redness or worsening drainage) and/or you are experiencing fever, chill or worsening back pain and muscle spasms, contact the office so that we may evaluate you as soon as possible. B. Complications are uncommon, but please contact us if you have any signs or symptoms of: 1. wound infection (fever higher than 102.5 degrees F, redness, separation of wound, drainage, or increasing pain from the incision) 2. blood clots in legs (pain, swelling, redness and warmth in legs) 3. urinary tract infection (fever higher than 102.5 degrees F, burning upon urination or increased frequency of urination) 4. nerve problems (inability to walk on your toes or heels, numbness, loss of bowel or bladder control) 5. any other symptoms that concern you C. Please call the office at if you have any concerns or questions about your operation or recovery. D. No smoking! Smoking drastically decreases the chance of a solid fusion. E. Do not take any anti-inflammatory medications (Indocin, Advil, Motrin, Aspirin, Naprosyn, etc.) as these may inhibit the chance of a solid fusion. Tylenol is okay to take for pain. MANAGING PAIN AFTER SPINAL SURGERY 1. Narcotic medication is intended for short-term use and will be provided for surgical pain. Surgical pain usually lasts for a period of 4-6 weeks. Narcotic medication includes Percocet, Vicodin, Darvocet, Tylenol #3 or Lortab. 2. Longer-term pain is more appropriately treated with non-narcotic medication such as Tylenol ES. 3. Muscle spasm is not appropriately treated with narcotics. Muscle relaxers such as Soma, Flexeril or Skelaxin can be used along with Tylenol ES. 4. Remember that we all live with some "aches and pains". This is not unusual or uncommon after an injury or as we get older. a. Back pain is expected and may include muscle spasms for 4 to 6 weeks after surgery. The pain should gradually improve. If the pain worsens for no apparent reason, please contact the office. b. Intermittent leg pain may also be experienced and should not be concerned about unless it worsens for no apparent reason. If so, please contact the office. 5. We will provide appropriate medication within the normal guidelines of their prescribed use. We will also be very cautious and aware of potential abuse and extended duration of patients' medication needs. a. Pain medications are for your comfort and to assist with sleep and rest so that the tissue can heal. They are not provided in order to return to normal activity and should not be used through the day. To do so or worsening pain at night can result from ongoing tissue damage and development of tolerance to the prescribed medicine. 6. Please allow 2-3 days to process refills. Prescriptions will not be mailed but must be picked up at the office. FOLLOW UP VISIT: Keep your scheduled follow-up appointment. Any questions, please call the office at . Current Hospital Diet Patient's current hospital diet: Regular Diet Discharge Diet Recommended Diet: Regular Diet Procedures Procedures Performed: Pending Studies Studies pending at discharge: no Medical Emergencies . Who to Call and When: Medical Emergencies: If at any time you feel your situation is an emergency, please call 911 immediately. . Non-Emergent Contact Non-Emergency issues call your: Primary Care Provider . "Provider Documentation" section prepared by Eran Valdes. .
[2018-02-22 07:48] VITALS: BP 144/93; PULSE 91; TEMP 36.8; O2SAT 94
--- NOTE | 2018-02-22 07:50 | Anesthesiology Progress Note ---
Anesthesia Post Op Note Date & Time Feb 22, 2018 at 07:50 Vital Signs Vital Signs Past 12 Hours Date Time Temp Pulse Resp B/P (MAP) Pulse Ox O2 Delivery O2 Flow Rate FiO2 02/22/18 06:06 93 Room Air 02/22/18 03:31 36.7 98 18 129/96 (107) 96 Nasal Cannula 2.0 02/22/18 00:15 Nasal Cannula 2.0 02/21/18 23:51 36.7 99 18 126/81 (96) 96 Nasal Cannula 2.0 02/21/18 20:50 36.6 94 18 146/98 (114) 95 Nasal Cannula 2.0 Notes Mental Status: alert / awake / arousable, participated in evaluation Pt Amnestic to Procedure: Yes Nausea / Vomiting: adequately controlled Pain: adequately controlled Airway Patency, RR, SpO2: stable & adequate BP & HR: stable & adequate Hydration State: stable & adequate Anesthetic Complications: no major complications apparent
[2018-02-22 07:52] LABS: HEMATOCRIT 40.5 % (42-52); HEMOGLOBIN 13.9 g/dL (14.0-18.0); IG# 0.02 K/uL (0.00-0.02); LYMPH % 4.4 %; MEAN CORPUSCULAR HEMOGLOBIN 30.2 pg (25-34); MEAN CORPUSCULAR HGB CONC 34.3 g/dl (32-36); MEAN PLATELET VOLUME 9.5 fL (7.4-10.4); MONO % 5.1 %; MONO ABS # 0.58 K/uL (0.11-0.59); NEUT % 90.3 %; PLATELET COUNT 199 K/uL (130-400); RED CELL DISTRIBUTION WIDTH CV 13.1 % (11.5-14.5); RED CELL DISTRIBUTION WIDTH SD 42.1 fL (36.4-46.3)
[2018-02-22 08:25] LABS: CALCIUM 9.1 mg/dl (8.5-10.1); CREATININE 0.87 mg/dl (0.60-1.40)
[2018-02-22] MEDS: OXYCODONE HCL IR 5 MG TAB (IMMEDIATE RELEASE) PO PRN ×2 (08:46→13:00)
[2018-02-22] MEDS: ALLOPURINOL 300 MG TAB PO SCH (08:47)
[2018-02-22] MEDS: DOCUSATE SODIUM 100 MG CAP PO SCH ×2 (08:47→20:54)
[2018-02-22] MEDS: GABAPENTIN 400 MG CAP PO SCH (08:47)
[2018-02-22] MEDS: METOPROLOL SUCC 50MG EXT REL TAB PO SCH (08:47)
[2018-02-22] MEDS: DIMETHYL FUMARATE 240 MG PO SCH ×2 (08:48→20:57)
[2018-02-22] MEDS: HYDROmorphone INJ 0.5 MG/0.5 ML SYR IV PRN ×3 (09:18→20:08)
[2018-02-22] MEDS: CYCLOBENZAPRINE HCL 10 MG TAB PO PRN ×2 (11:53→20:54)
[2018-02-22 11:54] VITALS: BP 145/86; PULSE 90; TEMP 36.7; O2SAT 99
[2018-02-22] MEDS ORDERED: KETOROLAC TROMETHAMINE 30 MG/ML VIAL IV STA (13:19)
--- NOTE | 2018-02-22 13:40 | Progress Note ---
Progress Note Date of Service Feb 22, 2018. Progress Note Patient complaining of back pain he states his leg pain is markedly improved. Vital signs are stable. On exam he is good strength testing appears comfortable. Assessment status post lumbar decompression fusion per plan at this time will continue physical therapy monitor his progress and BETHANY output hopefully discharge home in the next few days.
[2018-02-22 15:15] VITALS: BP 114/72; PULSE 81; TEMP 36.7; O2SAT 92
[2018-02-22] MEDS: KETOROLAC TROMETHAMINE 30 MG/ML VIAL IV PRN (20:52)
[2018-02-22] MEDS: DOCUSATE SODIUM/SENNA 50/8.6MG TAB PO SCH (20:54)
[2018-02-22 23:39] VITALS: BP 131/83; PULSE 81; TEMP 36.6; O2SAT 90
[2018-02-23] MEDS: HYDROmorphone INJ 0.5 MG/0.5 ML SYR IV PRN ×2 (02:49→10:12)
[2018-02-23] MEDS: POLYETHYLENE (MIRALAX) 17 GM PACK PO SCH ×2 (06:00→11:50)
[2018-02-23 08:30] VITALS: BP 149/98; PULSE 76; TEMP 36.8; O2SAT 97
[2018-02-23] MEDS: ALLOPURINOL 300 MG TAB PO SCH (08:33)
[2018-02-23] MEDS: GABAPENTIN 400 MG CAP PO SCH (08:33)
[2018-02-23] MEDS: DIMETHYL FUMARATE 240 MG PO SCH ×2 (08:33→21:58)
[2018-02-23] MEDS: METOPROLOL SUCC 50MG EXT REL TAB PO SCH (08:33)
[2018-02-23] MEDS: DOCUSATE SODIUM 100 MG CAP PO SCH ×2 (08:33→21:59)
[2018-02-23] MEDS: CYCLOBENZAPRINE HCL 10 MG TAB PO PRN ×2 (08:39→19:23)
[2018-02-23] MEDS: OXYCODONE HCL IR 5 MG TAB (IMMEDIATE RELEASE) PO PRN ×3 (08:39→20:10)
--- NOTE | 2018-02-23 11:13 | Progress Note ---
Progress Note Date of Service Feb 23, 2018. Progress Note Back pain is improving. Leg symptoms improved. Vital signs stable. On exam his good strength testing appears comfortable. Assessment status post lumbar decompression fusion per plan at this time we will maintain the BETHANY drain another 24 hours and anticipate discharge home tomorrow.
[2018-02-23] MEDS ORDERED: NURSING VERBAL MED ORDER ONE (12:00)
[2018-02-23 15:23] VITALS: BP 129/88; PULSE 77; TEMP 36.8; O2SAT 94
[2018-02-23] MEDS: KETOROLAC TROMETHAMINE 30 MG/ML VIAL IV PRN (15:32)
[2018-02-23] MEDS: DOCUSATE SODIUM/SENNA 50/8.6MG TAB PO SCH (21:58)
[2018-02-23 23:18] VITALS: BP 142/90; PULSE 84; TEMP 36.9; O2SAT 94
[2018-02-24] MEDS: METOPROLOL SUCC 50MG EXT REL TAB PO SCH (07:39)
[2018-02-24] MEDS: ALLOPURINOL 300 MG TAB PO SCH (07:39)
[2018-02-24] MEDS: GABAPENTIN 400 MG CAP PO SCH (07:39)
[2018-02-24] MEDS: DOCUSATE SODIUM 100 MG CAP PO SCH (07:39)
[2018-02-24] MEDS: DIMETHYL FUMARATE 240 MG PO SCH (07:40)
[2018-02-24] MEDS: OXYCODONE HCL IR 5 MG TAB (IMMEDIATE RELEASE) PO PRN (07:40)
[2018-02-24 07:43] VITALS: BP 152/88; PULSE 92; TEMP 37; O2SAT 95
--- NOTE | 2018-02-24 08:21 | Discharge Summary ---
Orthopedic Discharge Summary Admission Date/Reason Feb 19, 2018 at 13:02 Low Back Pain. Discharge Date/Disposition Feb 24, 2018 Home Diagnosis Principal Diagnosis: Lumbar spinal stenosis with neurogenic claudication Admission Physical Exam As per Admitting History & Physical. Hospital Course Patient was admitted for severe back and leg pain. Imaging revealed worsening severe lateral recess stenosis at L4-5 subsequently we elected to undergo surgery. Surgery went well he was up and amatory postop day 1 and postop day 2. His BETHANY drain decreased appropriately. Subsequently was discharged home. Discharge orders and instructions can be found in the chart for further review. Discharge Instructions Please refer to the electronic Patient Visit Report (Discharge Instructions) for additional information.
[2018-02-24 08:44] VITALS: BP 152/88; PULSE 92; TEMP 37; O2SAT 95
== END 2018-02-24 10:58 | disposition home or self-care (01) | DRG 455 ==
LOC: C.EDB 11:52 → C.MSW 16:15 → ENRESERV 16:39 → OBSVTOIN 02-19 13:02
PROVIDERS: ADMIT Orthopaedic Surgery Orthopaedic Surgery of the Spine; ATTEND Orthopaedic Surgery Orthopaedic Surgery of the Spine
PROC: 0ST40ZZ Resection of Lumbosacral Disc, Open Approach (ICD-10-PCS; principal; 2018-02-21 07:30)
PROC: 0SG00AJ Fusion of Lumbar Vertebral Joint with Interbody Fusion Device, Posterior Approach, Anterior Column, Open Approach (ICD-10-PCS; principal; 2018-02-21 07:30)
PROC: 0SP304Z Removal of Internal Fixation Device from Lumbosacral Joint, Open Approach (ICD-10-PCS; principal; 2018-02-21 07:30)
PROC: 0SG0071 Fusion of Lumbar Vertebral Joint with Autologous Tissue Substitute, Posterior Approach, Posterior Column, Open Approach (ICD-10-PCS; principal; 2018-02-21 07:30)
DX: M48.062 Spinal stenosis, lumbar region with neurogenic claudication (principal); M54.41 Lumbago with sciatica, right side; I10 Essential (primary) hypertension; Z79.899 Other long term (current) drug therapy; Z98.1 Arthrodesis status; Z88.8 Allergy status to other drugs, medicaments and biological substances; Z88.5 Allergy status to narcotic agent; Z82.49 Family history of ischemic heart disease and other diseases of the circulatory system